=== PATIENT | male | born 1985 | race Caucasian/White ===

== ENCOUNTER 2019-06-26 14:14 | Emergency (ER) | payer SELFPAY ==
[2019-06-26] MEDS ORDERED: Cephalexin 250 MG CAP ONE (14:51)
[2019-06-26] MEDS ORDERED: Ibuprofen 800 MG TAB ONE (14:51)
== END 2019-06-26 14:57 | disposition home or self-care (01) ==
LOC: NAV ERS 14:14
DX: H00.013 Hordeolum externum right eye, unspecified eyelid (principal); F17.210 Nicotine dependence, cigarettes, uncomplicated
CPT/HCPCS: 99283